=== PATIENT | male | born 1980 | race Caucasian/White ===

== ENCOUNTER 2025-07-18 12:21 | Emergency (ER) | payer OTHER, SELFPAY ==
--- NOTE | ~2025-07-18 | CT_ITS ---
EXAMINATION: CT ABDOMEN AND PELVIS WITHOUT CONTRAST CLINICAL INFORMATION: Flank pain COMPARISON: None available. TECHNIQUE: Multidetector volumetric imaging was performed from the superior aspect of the liver through the pubic symphysis. Sagittal and coronal reformatted images were obtained on the technologist's workstation. This CT examination was performed using dose optimization techniques as appropriate, variously including the following: *Automated exposure control *Adjustment of mA and/or kV according to patient size (this includes techniques or standardized protocols for targeted exams where dose is matched to indication/reason for exam; i.e. extremities or head) *Use of iterative reconstruction technique DLP: 789 mGy centimeter. FINDINGS: Inadequate evaluation of the intra-abdominal organs and vascular structures due to lack of IV contrast. LUNG BASES: 12 mm mixed density partially calcified nodule, right middle lung lobe. LIVER, GALLBLADDER, AND BILIARY TREE: Liver measures 15 cm. Gallbladder is not distended. No pericholecystic fluid collection or gallbladder wall thickening. No intrahepatic or extrahepatic biliary ductal dilatation. PANCREAS: No peripancreatic fluid collection. No main pancreatic ductal dilatation. SPLEEN: 9 cm. ADRENAL GLANDS: No nodular lesions. KIDNEYS AND URETERS: Right kidney: Less than 1 mm calcification in the lower pole. No hydronephrosis. Left kidney: No hydronephrosis. Less than 1 cm punctate calcifications in the pelvicalyceal system. There is a 7 mm exophytic hypodensity measuring 27 Hounsfield units, anterior upper pole. There is a 10 mm hypodensity in the posterior upper pole midportion. BLADDER: Fluid-filled. GASTROINTESTINAL TRACT: Appendix is normal. Stool throughout the large intestine. Scattered diverticula throughout the large intestine. No intestinal obstruction pattern. No pneumatosis intestinalis. No intestinal wall thickening. Fecal material within the distal ileal loops. No ascites. No pneumoperitoneum. ABDOMINAL WALL: Diastases abdominal rectus muscles in the periumbilical region. LYMPH NODES: No specific prominent inguinal, iliac, mesenteric and retroperitoneum. VASCULAR: No aneurysm, abdominal aorta. Small calcified plaques in the abdominal aorta wall and iliac arteries. Calcified plaques in the coronary arteries. PELVIC VISCERA: Not enlarged. Dystrophic calcifications in the prostate gland. OSSEOUS STRUCTURES: Spondylosis L5-S1 and to a lesser extent L4-5 and T10-11 no acute fracture or dislocation in either hip. Sclerosis and the sacroiliac joints. CT/CT abdomen pelvis wo IV con IMPRESSION: Bilateral nonobstructing nephrolithiasis. Diverticular disease. Granuloma versus hamartoma, right middle lung lobe. Fleischner guidelines were followed. Electronically signed by: Devyn Bobo MD 07/18/2025 02:50 PM EDT RP
[2025-07-18 13:45] VITALS: BP 166/108; PULSE 85; RESP 16; TEMP 37.1; O2SAT 95; BMI 31.2
[2025-07-18 14:02] LABS: MANUAL DIFF FLAG NO
[2025-07-18 14:03] LABS: Hematocrit 45.5 % (42.0-52.0); Hemoglobin 15.6 g/dl (14.0-18.0); Imm Gran Abs Auto 0.05 X10*3/uL (0.00-0.03); Imm Gran Pct Auto 0.4 % (0.0-0.4); Lymphocytes Absolute Auto 4.5 X10*3/uL (1.2-4.9); Mean Corpuscular HGB Conc 34.3 g/dl (31.0-36.0); Mean Corpuscular Hemoglobin 30.1 pg (27.0-33.0); Mean Corpuscular Volume 87.8 fL (80.0-98.0); NRBC Abs Auto 0.000 X10*3/uL (0.0-0.012); NRBC Pct Auto 0.0 /100WBC (0.0-0.2); Platelet Count 288 X10*3/uL (160-400); Red Blood Count 5.18 X10*6/uL (4.60-5.80); White Blood Count 11.5 X10*3/uL (4.8-10.8)
--- NOTE | 2025-07-18 14:03 | ED.MALEGU ---
HPI - Male Genitourinary General Chief complaint: Urogenital-Male Stated complaint: Kidney stone? Time Seen by Provider: 07/18/25 18:05 Source: patient Mode of arrival: ambulatory Limitations: no limitations History of Present Illness ED Provider: Lg CASTELAN HPI Narrative: The patient is a 45-year-old male presenting to the ED for evaluation of left-sided flank pain which began atraumatically yesterday while at rest with associated nausea without vomiting. Patient reports associated urgency, but denies dysuria, hematuria, fever/chills, or abdominal pain. The patient reports pain does radiate intermittently into his testicles, denies associated testicular swelling, erythema, tenderness to palpation, penile lesions, or urethral discharge. The patient denies any new sexual partners, denies any recent sick contacts or trauma. The patient reports symptoms are similar to a kidney stone he experienced 25 years ago. The patient has not attempted any interventions for his discomfort prior to arrival in the ED. Related Data Allergies Allergy/AdvReac Type Severity Reaction Status Date / Time No Known Allergies Allergy Verified 07/18/25 13:48 Review of Systems Review of Systems: Yes all other systems are reviewed and are negative PMFSH Social History Social History Use of substances other than those prescribed or required for medical reasons: No Advance Directives: No Advance Directives Information Provided: No Physical Exam Vital Signs: Vital Signs: Last Vital Signs Temp 97.8 F 07/18/25 19:15 Pulse 73 07/18/25 19:15 Resp 18 07/18/25 19:15 BP 165/104 H 07/18/25 19:15 Pulse Ox 98 07/18/25 19:15 O2 Del Method Room Air 07/18/25 19:15 BMI result Body Mass Index 31.2 CONSTITUTIONAL: The patient appears comfortable, non-toxic, well nourished and in no acute distress. Vital signs as documented. HEAD: Atraumatic, normocephalic. EYES: EOMs grossly intact, pupils equal, conjunctiva clear, no exudate. ENT: Nares patent, no discharge. Airway patent, no audible stridor, visible mucosa is pink and moist without noted lesions. NECK: Trachea is midline, no obvious masses or gross abnormalities. CHEST: Symmetric movement, normal appearance. LUNGS: LS present and CTAB, no w/r/r. Non-labored work of breathing. CARDIAC: Regular Rhythm, S1/S2 appreciated, no murmurs, rubs or gallops. ABDOMEN: Abdomen soft and non-tender x4 quadrants, no palpable masses or organomegaly. : Deferred. BACK: Mild left CVAT, negative on the right, no bony tenderness. EXTREMITIES: Normal tone, moves all extremities spontaneously without reported pain. No obvious acute injury or deformity noted. NEURO: Alert and oriented x3, CN II-XII appear grossly intact. Cerebellar Functioning grossly intact. No obvious sensory or motor deficits. Speech clear and appropriate. PSYCH: normal affect, appropriate eye contact, fluid speech, with appropriate response to questioning. No reported suicidality or homicidality. SKIN: Warm, dry, color appropriate, normal turgor. No rashes noted. Course Course Course Narrative: RME: 45 yold male presents to the ED with left flank pain with x 1day with no urinary symptoms. patient has pmh of kidney stones. Pain radiates to testicles. labs UA, CT scan ordered. Positive left flank CVA Medications Administered Discontinued Medications Generic Name Dose Route Start Last Admin Trade Name Freq PRN Reason Stop Dose Admin Ketorolac Tromethamine 30 mg 07/18/25 18:50 07/18/25 18:58 Ketorolac Tromethamine 30 Mg/Ml Vial IM 07/18/25 18:51 30 mg ONCE ONE Administration Medical Decision Making Medical Decision Making [facility] Narrative: 6:54 PM 07/18/2025 (Dwain CASTELAN): The patient is a 45-year-old male presenting to the ED for evaluation of left flank pain which began atraumatically while at rest yesterday with associated radiation to the testicles and nausea without associated other symptoms. The patient's exam is reassuring, no abdominal tenderness, minimal CVAT on the left, negative on the right. No other acute findings. Patient looks markedly comfortable, no evidence of discomfort or distress. Vital signs show moderate hypertension, otherwise unremarkable. The patient's laboratory evaluation shows mild leukocytosis of 11.5, no anemia, electrolyte abnormality, or ROBIN. The patient's urinalysis is negative for blood or infection. Patient's CT abdomen and pelvis shows to bilateral renal stones, no ureteral stones, hydronephrosis, hydroureter, or stones in the bladder. Given patient's symptom onset yesterday it is possible patient has suffered from a passed kidney stone, we will treat symptoms with Toradol, and given otherwise reassuring workup and CT, we will plan for discharge. Patient's CT was also notable for granuloma versus hamartoma of the right middle lung lobe. Patient was advised of this finding and its benign nature, instructed to follow up with PCP, of note patient is currently traveling, patient's PCP is in [place] where the patient resides. Admission/Observation Consideration of admission/observation: Escalation of care including admission/observation considered Lab Data MDM Lab Attestation statement: I reviewed the patient's lab results. 07/18/25 13:58 07/18/25 13:58 Labs: Lab Results 07/18/25 07/18/25 Range/Units 13:55 13:58 WBC 11.5 H (4.8-10.8) X10*3/uL RBC 5.18 (4.60-5.80) X10*6/uL Hgb 15.6 (14.0-18.0) g/dl Hct 45.5 (42.0-52.0) % MCV 87.8 (80.0-98.0) fL MCH 30.1 (27.0-33.0) pg MCHC 34.3 (31.0-36.0) g/dl RDW 13.6 (11.0-16.0) % Plt Count 288 (160-400) X10*3/uL MPV 9.8 (9.4-12.4) fL Immature Gran % (Auto) 0.4 (0.0-0.4) % Neut % (Auto) 44.8 L (45-73) % Lymph % (Auto) 39.3 (20-40) % [place] % (Auto) 8.4 (2-11) % Eos % (Auto) 6.3 H (0-4) % Baso % (Auto) 0.8 (0-2) % Lymph # (Auto) 4.5 (1.2-4.9) X10*3/uL [place] # (Auto) 1.0 (0.1-1.2) X10*3/uL Eos # (Auto) 0.7 H (0.0-0.4) X10*3/uL Baso # (Auto) 0.1 (0.0-0.2) X10*3/uL Abs Immat Gran (auto) 0.05 H (0.00-0.03) X10*3/uL Absolute Neuts (auto) 5.2 (2.0-8.3) x10*3/uL Absolute Nucleated RBC 0.000 (0.0-0.012) X10*3/uL Nucleated RBC % (auto) 0.0 (0.0-0.2) /100WBC Sodium 138 (135-145) mmol/L Potassium 4.2 (3.3-5.1) mmol/L Chloride 105 (96-108) mmol/L Carbon Dioxide 23 (22-29) mmol/L Anion Gap 14 (12-20) BUN 14 (9-16) mg/dL Creatinine 1.13 (0.5-1.4) mg/dL Estim Creat Clear Calc 89.4 Estimated GFR > 60 Random Glucose 98 (60-115) mg/dL Calcium 9.5 (8.4-10.2) mg/dL Urine Color Yellow Urine Appearance Clear Urine pH 6.0 (5.0-9.0) Ur Specific [place] <= 1.005 (1.005-1.025) Urine Protein Negative (Neg-Trace) mg/dL Urine Glucose (UA) Negative (Negative) mg/dL Urine Ketones Negative (Negative) mg/dL Urine Blood Negative (Negative) Urine Nitrite Negative (Negative) Ur Leukocyte Esterase Negative (Negative) Radiology Impression Discussion of test interpretation with radiology: I have reviewed the radiologist's reading. Radiologist Impression: EXAMINATION: CT ABDOMEN AND PELVIS WITHOUT CONTRAST CLINICAL INFORMATION: Flank pain COMPARISON: None available. TECHNIQUE: Multidetector volumetric imaging was performed from the superior aspect of the liver through the pubic symphysis. Sagittal and coronal reformatted images were obtained on the technologist's workstation. This CT examination was performed using dose optimization techniques as appropriate, variously including the following: *Automated exposure control *Adjustment of mA and/or kV according to patient size (this includes techniques or standardized protocols for targeted exams where dose is matched to indication/reason for exam; i.e. extremities or head) *Use of iterative reconstruction technique DLP: 789 mGy centimeter. FINDINGS: Inadequate evaluation of the intra-abdominal organs and vascular structures due to lack of IV contrast. LUNG BASES: 12 mm mixed density partially calcified nodule, right middle lung lobe. LIVER, GALLBLADDER, AND BILIARY TREE: Liver measures 15 cm. Gallbladder is not distended. No pericholecystic fluid collection or gallbladder wall thickening. No intrahepatic or extrahepatic biliary ductal dilatation. PANCREAS: No peripancreatic fluid collection. No main pancreatic ductal dilatation. SPLEEN: 9 cm. ADRENAL GLANDS: No nodular lesions. KIDNEYS AND URETERS: Right kidney: Less than 1 mm calcification in the lower pole. No hydronephrosis. Left kidney: No hydronephrosis. Less than 1 cm punctate calcifications in the pelvicalyceal system. There is a 7 mm exophytic hypodensity measuring 27 Hounsfield units, anterior upper pole. There is a 10 mm hypodensity in the posterior upper pole midportion. BLADDER: Fluid-filled. GASTROINTESTINAL TRACT: Appendix is normal. Stool throughout the large intestine. Scattered diverticula throughout the large intestine. No intestinal obstruction pattern. No pneumatosis intestinalis. No intestinal wall thickening. Fecal material within the distal ileal loops. No ascites. No pneumoperitoneum. ABDOMINAL WALL: Diastases abdominal rectus muscles in the periumbilical region. LYMPH NODES: No specific prominent inguinal, iliac, mesenteric and retroperitoneum. VASCULAR: No aneurysm, abdominal aorta. Small calcified plaques in the abdominal aorta wall and iliac arteries. Calcified plaques in the coronary arteries. PELVIC VISCERA: Not enlarged. Dystrophic calcifications in the prostate gland. OSSEOUS STRUCTURES: Spondylosis L5-S1 and to a lesser extent L4-5 and T10-11 no acute fracture or dislocation in either hip. Sclerosis and the sacroiliac joints. CT/CT abdomen pelvis wo IV con IMPRESSION: Bilateral nonobstructing nephrolithiasis. Diverticular disease. Granuloma versus hamartoma, right middle lung lobe. Fleischner guidelines were followed. Electronically signed by: Devyn Bobo MD 07/18/2025 02:50 PM EDT Prescription Management I considered prescription management with: Pain Medication Discharge Plan Discharge Clinical Impression: Acute flank pain Patient Disposition: Home, Self-Care Instructions: Flank Pain (ED) Additional Instructions: Thank you for choosing [facility]'s Emergency Department for your care today. At this time there is no indication for admission to the hospital or continued ED observation, and it is safe to discharge you home. Your symptoms today may have been caused by a passed kidney stone. Your CT today shows no evidence of an active kidney stone your ureter. You do have two stones in your kidneys which are not related to your symptoms today, but may cause you pain if they become dislodged and pass through the ureter in the future. Your urinalysis shows no infection and your laboratory workup is otherwise reassuring. We have treated you with Toradol today. If you found relief from this medication you can continue taking ibuprofen 600 mg every 8 hours as needed for pain. Your CT did show an incidental finding of a granuloma versus hamartoma of your right middle lung, this is a benign finding which does not represent a cancerous tumor, however it is important that you follow up with the your primary care provider to make them aware so they can continue monitoring and consider repeat imaging as indicated. Please follow up with your primary care physician for re-evaluation, additional management of your symptoms, and continued preventative care. If you do not have a primary care physician, please call the [facility] at [phone] to establish a new primary care physician. While waiting to establish your new primary care physician, you can call our Walk[facility]in [facility] at [phone] for non-emergency needs. Please return to the emergency department if you develop a severe or sudden change in your symptoms, a fever over 100.4 that does not improve with Tylenol or Ibuprofen, recurrent vomiting, or any other new or worsening symptoms or concerns. Stand Alone Forms: Work/School Release Interventions: ED Discharge Assessment Last Done: 07/18/25 19:11 Discharge Date/Time: 07/18/25 19:28 Print Language: Gambian
[2025-07-18 14:04] LABS: Appearance Urine Clear; Glucose Urine UA Negative (Negative); PH 6.0 (5.0-9.0); Specific Gravity - Urine <= 1.005 (1.005-1.025)
[2025-07-18 14:19] LABS: Anion Gap 14 (12-20); Blood Urea Nitrogen 14 mg/dL (9-16); Calcium 9.5 mg/dL (8.4-10.2); Carbon Dioxide 23 mmol/L (22-29); Chloride 105 mmol/L (96-108); Creatinine Clr Calc Pharmacy 89.4; Estimated Glomerular Filt Rate > 60; Potassium 4.2 mmol/L (3.3-5.1); Sodium 138 mmol/L (135-145)
--- OUTSIDE RECORDS SUMMARY | 2025-07-18 16:58 | XMS_ITS | Clinical Summary ---
Author Organization [facility] Address [address] [place] [id number] Care Team Providers Care Procurement Director Name Role Phone Pcp, No Primary Care Provider Unavailabl e Allergies No known active allergies Medications NON FORMULARY adalimumad Activ e nirmatrelvir & ritonavir 300mg/100mg (PAXLOVID) 20 x 150 MG & 10 x 100MGIndication s:COVID-19 virus infection Take 300 mg nirmatrelvir (two 150 mg tablets) with 100 mg ritonavir (one 100 mg tablet), with all three tablets taken together by mouth twice daily for 5 days. 30 each Active Social History Tobacco Use Types Packs/Day Years Used Date Smoking Tobacco: Never Passive Smoke Exposure: Never Smokeless Tobacco: Never Inadequate Housing Answer Date Recorded Social Determinants: Housing (Overall Score Help er) 0 11/24/2023 Sex and Gender Information Value Date Recorded Sex Assigned at Not on file Legal Sex Male 11:22 AM TRAUMA COORDINATOR Gender Identity Not on file Sexual Orientation Not on file Obstetrics History Last Filed Vital Signs Vital Sign Reading Time Taken Comments Blood Pressure 138/86 11/24/2023 11:35 AM TRAUMA COORDINATOR Pulse 108 11/24/2023 11:35 AM TRAUMA COORDINATOR Temperature 36.9 C (98.4 F) 11/24/2023 11:35 AM TRAUMA COORDINATOR Respiratory Rate 18 11/24/2023 11:35 AM TRAUMA COORDINATOR Oxygen Saturation 96% 11/24/2023 11:35 AM TRAUMA COORDINATOR Inhaled Oxygen Concentration - - Weight 93 kg (205 lb) 11/24/2023 11:35 AM TRAUMA COORDINATOR pe r patient\ Height - - Body Mass Index - - Plan of Treatment Health Maintenance Due Date Last Done Comments COVID-19 Vaccine (#1) 1983 Depression Screening 1990 DTaP/Tdap/Td Vaccine (1 - Tdap) 1997 Hepatitis B Vaccine (1 of 3 - 19+ 3-dose series) 1997 Pneumococcal Vaccine 0-49 (1 of 2 - PCV) 1997 CT Colonography 2023 Cologuard 2023 Colonoscopy 2023 Colorectal Cancer Screening 2023 Fecal Occult Blood 2023 Sigmoidoscopy 2023 Influenza Vaccine (#1) 2025 HPV Vaccine (No Doses Required) Completed Hepatitis A Vaccine Aged Out No longe r eligible based on patient's age to complete this topic Meningococcal Serogroup B Vaccine Aged Out No longer eligible based on patient's age to complete this topic Meningococcal Vaccine Aged Out No osorio kacie eligible based on patient's age to complete this topic Insurance [facility] Care Teams Procurement Director Relationship Specialty Start Date End Date Pcp, No PCP - General 11/24/23
--- OUTSIDE RECORDS SUMMARY | 2025-07-18 16:58 | XMS_ITS | Clinical Summary ---
Author Organization [facility] ates Address [address] [place] [address] Care Team Providers Care Drapery Cutter Machine Name Role Phone Colten Ulrich MD Primary Care Provider [phone] Allergies No known active allergies Medications CLAUDIAIRA, 2 PEN, 40 MG/0.4ML subcutaneous PNKT Inject 40 mg into the skin every other week. 4 Active amLODIPine (NORVASC) 5 mg oral tabletIndications :Hypertension Take 1 tablet (5 mg total) by mouth once daily. Indications: High Blood Pressure Disorder 90 tablet 3 4 Active losartan (COZAAR) 50 mg oral tabletIndications :Hypertension Take 1 tablet (50 mg total) by mouth once daily. Indications: High Blood Pressure Disorder 90 tablet 3 4 Active Active Problems Problem Noted Date Diagnosed Date Hyperlipidemia, mixed 05/13/2024 Obesity, Class I, BMI 30-34.9 05/13/2024 Essential hypertension 04/15/2024 History of kidney stones 04/15/2024 Arthropathic psoriasis, unspecified 12/15/2023 Other psoriasis 12/15/2023 Encounters Date Type Department Care Team Description 05/24/2025 7:50 AM CDT Lab/Non-Imaging [facility] [address] [place] [address] Elevated fasting glucose 05/24/2025 Travel 05/19/2025 11:10 AM CDT Nurse Visit [facility] Paper Kendall [facility] [address] [place] [address] Nurse, Paper [facility]; Blood Pressure Check; Questions/Concerns 05/19/2025 7:40 AM CDT Lab/Non-Imaging [facility] [place] [address] Routine general medical examination at a health care facility; Essential hypertension; Screening for lipid disorders 05/19/2025 Telephone [facility] [address] [place] [address] Colten Ulrich MD Orders 05/19/2025 Travel from Last 3 Months Immunizations Immunization Administration Dates Next Due Tdap > 7 Years 05/12/2024 Social History Tobacco Use Types Packs/Day Years Used Date Smoking Tobacco: Never Passive Smoke Exposure: Past Smokeless Tobacco: Never Tobacco Cessation:Counseling Given: Not Answered Passive Exposure Comments: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 No 05/13/2024 Social Connection and Isolation Panel [NHANES] A nswer Date Recorded In a typical week, how many times do you talk on the phone with family, friends, or neighbors? Once a week 05/13/2024 How often do you get together with friends or re latives? Once a week 05/13/2024 How often do you attend methodist or confucianist serv ices? Never 05/13/2024 Do you belong to any clubs o r organizations such as methodist groups, unions, fraternal or athletic groups, or school groups? No 05/13/2024 How often do you attend meet ings of the clubs or organizations you belong to? Never 05/13/2024 Are you , , di vorced, , never , or living with a partner? Never 05/13/2024 Overall Financial Resource Strain (CARDIA) Answe r Date Recorded How hard is it for you to pa y for the very basics like food, housing, medical care, and heating? Not hard at all 05/13/2024 Exercise Vital Sign Answer Date Recorde d On average, how many days pe r week do you engage in moderate to strenuous exercise (like a brisk walk)? 5 days Minutes of Exercise per Session Not on file 05/13/2024 Hunger Vital Sign Answer Date Recorded Within the past 12 months, y ou worried that your food would run out before you got the money to buy more. Never true 05/13/20 24 Within the past 12 months, t he food you bought just didn't last and you didn't have money to get more. Never true 05/13/2024 PRAPARE - Transportation Answer Date Re corded In the past 12 months, has l ack of transportation kept you from medical appointments or from getting medications? No 04/24 In the past 12 months, has l ack of transportation kept you from meetings, work, or from getting things needed for daily living? No 05/13/2024 Housing Stability Vital Sign Answer Tomás e Recorded In the last 12 months, was t here a time when you were not able to pay the mortgage or rent on time? No 05/13/2024 Number of Times Moved in the Last Year Not on fi le 05/13/2024 Homeless in the Last Year Not on file 2023 Alcohol Use Answer Date Recorded Q1: How often do you have a drink containing alc ohol? 2-4 times a month 05/13/2024 Q2: How many drinks containi ng alcohol do you have on a typical day when you are drinking? 3 or 4 05/13/2024 Q3: How often do you have si x or more drinks on one occasion? Monthly 05/13/2024 Depression Answer Date Recorded Total PHQ-2 Score: 0 05/13/2024 PHQ-9 Score 1 05/13/2024 PHQ-9M Score Not on file 05/13/2024 Sex and Gender Information Value Date Recorded Sex Assigned at Not on file Legal Sex Male 11:24 AM CDT Gender Identity Not on file Sexual Orientation Not on file Last Filed Vital Signs Vital Sign Reading Time Taken Comments Blood Pressure 124/80 05/19/2025 11:26 AM CDT Pulse 82 05/19/2025 11:26 AM CDT Temperature 36.8 C (98.3 F) 05/13/2024 3:50 PM CDT Respiratory Rate 12 05/13/2024 3:50 PM CDT Oxygen Saturation 99% 05/19/2025 11:26 AM CDT Inhaled Oxygen Concentration - - Weight 96.3 kg (212 lb 3.2 oz) 05/13/2024 3:50 P M CDT Height 172.7 cm (5' 8 ) 05/13/2024 3:50 PM CDT Body Mass Index 32.26 05/13/2024 3:50 PM CDT Plan of Treatment Health Maintenance Due Date Last Done Comments Hep C Screening 1978 COVID-19 Vaccine (#1) 1983 Hep B (1 of 3 - 19+ 3-dose series) 1997 Pneumococcal 0-50 (1 of 2 - PCV) 1997 Shingles (1 of 2) 1997 CT Colonography Every 5 Years 2023 Cologuard Every 3 Years 2023 Colonoscopy 2023 Colorectal Cancer Screening 2023 FIT/FOBT Every 1 Year 2023 Sigmoidoscopy Every 5 Years 2023 Flu 6M+ (#1) 06/23/2025 DTaP/Tdap/Td/Tetanus (2 - Td or Tdap) 05/12/2034 Procedures Procedure Name Priority Date/Time Associated Diagnosis Comments JUST IN CASE GOLD TOP TUBE Routine 05/24/2025 7:46 AM CDT Elevated fasting glucose GLYCOHEMOGLOBIN/HEMOG LOBIN A1C ([facility] ONLY) Routine 05/24/2025 7:46 AM CDT Elevated fasting glucose JUST IN CASE LAVENDER TOP TUBE Routine 05/19/2025 7:36 AM CDT Routine general medical examination at a health care facility PANEL, COMPREHENSIVE METABOLIC Routine 05/19/2025 7:36 AM CDT Routine general medical examination at a health care facility Essential hypertension LIPID PANEL WITH REFLEX LDL Routine 05/19/2025 7:36 AM CDT Routine general medical examination at a health care facility Screening for lipid disorders ASSAY OF THYROID STIMULATING HORMONE TSH Routine 05/19/2025 7:36 AM CDT Routine general medical examination at a health care facility Essential hypertension from Last 3 Months Results * JUST IN CASE GOLD TOP TUBE (05/24/2025 7:46 AM CDT) EXTRA GOLD Extra Gold 05/24/2025 8:55 AM CDT [facility] Blood Venipuncture / Unknown 05/24/2025 7:46 AM CDT 05/24/2025 7:46 AM CDT Colten Ulrich MD LAB - NO IN BASKET NO LAB TAB Fi nal Result Performing Organization Address City/[facility]/ZIP Co de Phone Number [address] [address] * GLYCOHEMOGLOBIN/HEMOGLOBIN A1C ([facility] ONLY) (05/24/2025 7:46 AM CDT) Pathologist [facility] A1C 5.3 <5.7 % 05/24/2025 8:16 AM CDT [facility] ESTIMATED AVG GLUCOSE 105 mg/dl 05/24/2025 8:16 AM CDT [facility] Whole blood Venipuncture / Unknown 05/24/2025 7:46 AM CDT 05/24/2025 7:46 AM CDT Narrative [facility] - 05/24/2025 8:16 AM CDT Note revised reference range and comment, effective 11-14- THE CLINICAL PRACTICE RECOMMENDATIONS FOR STANDARDS OF MEDICAL CARE IN DIABETICS: Prediabetes Diagnosis = 5.7-6.4% Diabetes Diagnosis = 6.5% and greater Anemia / acute blood loss may falsely lower HGB A1C results Recent blood transfusions may affect HGB A1C accuracy us Colten Ulrich MD LAB BLOOD ORDERABLES Final Resul t [address] [address] * JUST IN CASE LAVENDER TOP TUBE (05/19/2025 7:36 AM CDT) EXTRA LAVENDER Extra Lavender 05/19/2025 8:55 AM CDT [facility] Blood Venipuncture / Unknown 05/19/2025 7:36 AM CDT 05/19/2025 7:36 AM CDT us Colten Ulrich MD LAB - NO IN BASKET NO LAB TAB Fi nal Result [facility] [address] [place] [address] * (ABNORMAL) PANEL, COMPREHENSIVE METABOLIC (05/19/2025 7:36 AM CDT) GLUCOSE 84 70 - 100 mg/dL 05/19/2025 9:28 AM T [facility] UREA NITROGEN 20 9 - 23 mg/dL 05/19/2025 9:28 AM T [facility] CREATININE 0.98 0.73 - 1.18 mg/dL 05/19/2025 9:28 AM T [facility] eGFR 96 >=60 mL/Min/1.7 3 sqm 05/19/2025 9:28 AM [facility] Comment:Calculation based on the Chronic Kidney Disease Epidemiology Collaboration (CKD-EPI) equation refit without adjustment for race. SODIUM 139 136 - 145 mmol/L (mEq/L) 05/19/2025 9:28 AM T [facility] POTASSIUM 4.2 3.5 - 5.1 mmol/L (mEq/L) 05/19/2025 9:28 AM T [facility] CHLORIDE 106 101 - 112 mmol/L (mEq/L) 05/19/2025 9:28 AM [facility] TOTAL CO2 25 20 - 31 mmol/L (mEq/L) 05/19/2025 9:28 AM [facility] CALCIUM 9.5 8.9 - 10.7 mg/dL 05/19/2025 9:28 AM CDT [facility] Comment:Effective 12-26-24, p lease note reference range changes. TOTAL PROTEIN 7.2 5.7 - 8.2 g/dL 05/19/2025 9:28 AM CDT [facility] ALBUMIN 4.6 3.9 - 5.1 g/dL 05/19/2025 9:28 AM CDT [facility] Comment:Effective 12-26-24, p lease note reference range changes. BILIRUBIN, TOTAL 0.4 0.3 - 1.3 mg/dL 05/19/2025 9:28 AM CDT [facility] Comment:Effective 12-26-24, p lease note reference range changes. SGOT/AST 33 <39 U/L 05/19/2025 9:28 AM CDT [facility] Comment:Effective 12-26-24, p lease note reference range changes. SGPT/ALT 60(H) 10 - 52 U/L 05/19/2025 9:28 AM CDT [facility] Comment:Effective 12-26-24, p lease note reference range changes. ALK PHOSPHATASE 53 43 - 131 U/L 05/19/2025 9:28 AM T [facility] Comment:Effective 12-26-24, p lease note reference range changes. Blood Venipuncture / Unknown 05/19/2025 7:36 AM CDT 05/19/2025 7:36 AM CDT us Colten Ulrich MD LAB BLOOD ORDERABLES Final Resul t [facility] [address] [place] [address] * (ABNORMAL) LIPID PANEL WITH REFLEX LDL (05/19/2025 7:36 AM CDT) [facility] Signature CHOLESTEROL 232(H) <200 mg/dL 05/19/2025 9:28 AM CDT [facility] Comment: Low-risk level (desirable): < 200 mg/dL Moderate-risk level (borderline): 200-239 mg/dL High-risk level: >= 240 mg/dL . TRIGLYCERIDE 174(H) <150 mg/dL 05/19/2025 9:28 AM CDT [facility] Comment: TRIGLYCERIDES: Normal Less than 150 mg/dl Borderline High Risk 150 - 199 mg/dl High Risk 200 - 499 mg/dl Very High Risk Greater than 500 mg/dl HDL CHOLESTEROL 35(L) >50 mg/dL 9:28 AM CDT [facility] NON HDL CHOLESTEROL 197(H) <130 mg/dl 05/19/2025 9:28 AM CDT [facility] LDL 162(H) <=100 mg/dl 05/19/2025 9:28 AM CDT [facility] Comment: LDL CHOLESTEROL: Optimal Less than 100 mg/dl Near Optimal/Above Optimal 100 - 129 mg/dl Borderline High Risk 130 - 159 mg/dl High Risk 160 - 189 mg/dl Very High Risk Greater than 190 mg/dl CHOL/HDL RATIO 6.6(H) <4.5 05/19/2025 9:28 AM CDT [facility] Comment: CHOL/HDL RATIO: Normal Less than 4.5 Increased Risk Greater than 4.5 Blood Venipuncture / Unknown 05/19/2025 7:36 AM CDT 05/19/2025 7:36 AM CDT us Colten Ulrich MD LAB BLOOD ORDERABLES Final Resul t [facility] [address] [place] [address] * TSH ([facility] ONLY) (05/19/2025 7:36 AM CDT) TSH 2.339 0.550 - 4.780 uIU/ml 05/19/2025 9:28 AM CDT [facility] Blood Venipuncture / Unknown 05/19/2025 7:36 AM CDT 05/19/2025 7:36 AM CDT us Colten Ulrich MD LAB BLOOD ORDERABLES Final Resul t Performing Organization Address City/State/[facility] Co ma Phone Number [facility] [address] [place] [address] from Last 3 Months Insurance [facility] Care Teams Drapery Cutter Machine Relationship Specialty Start Date End Date Colten Ulrich MD [address] [place] [address] PCP - General Family Medicine 04/15/24
[2025-07-18 17:04] VITALS: BP 146/97; PULSE 73; RESP 18; TEMP 36.6; O2SAT 97
[2025-07-18 19:11] VITALS: BP 146/97; PULSE 73; RESP 18; TEMP 36.6; O2SAT 97
[2025-07-18 19:15] VITALS: BP 165/104; PULSE 73; RESP 18; TEMP 36.6; O2SAT 98
== END 2025-07-18 19:28 | disposition home or self-care (01) ==
PROVIDERS: Emergency Provider Emergency Medicine Emergency Medical Services
DX: R10.9 Unspecified abdominal pain (principal); R10.2 Pelvic and perineal pain; R39.15 Urgency of urination; R11.0 Nausea; N50.812 Left testicular pain; N50.811 Right testicular pain; Z79.899 Other long term (current) drug therapy
CPT/HCPCS: 36415; 74176; 80048; 81003; 85025; 96372; 99284; J1885

== ENCOUNTER → 2025-07-18 14:10 | Outpatient (BNV) | payer OTHER, SELFPAY | PROVIDERS: Visit Provider Radiology Diagnostic Radiology | DX: N20.0 Calculus of kidney (principal) | CPT/HCPCS: 74176 ==